=== PATIENT | male | born 1980 | race Caucasian/White ===

== ENCOUNTER 2016-11-03 17:24 | Emergency (ER) | payer SELFPAY ==
[~2016-11-03] VITALS: Ht 188 cm; Wt 83.9 kg
[2016-11-03 17:24] VITALS: BP 167/100
--- NOTE | 2016-11-03 18:05 | NUR ---
PT TO RADIOLOGY FOR FACIAL CT SCAN VIA WHEELCHAIR.
== END 2016-11-03 19:33 | disposition home or self-care (01) ==
LOC: ER 17:26
DX: H72.91 Unspecified perforation of tympanic membrane, right ear (principal); Z88.0 Allergy status to penicillin
CPT/HCPCS: 70480; 99284; A4606; Z7610